=== PATIENT | male | born 1990 | race Caucasian/White ===

== ENCOUNTER 2025-03-26 10:57 | Emergency (ER) | payer OTHER ==
[2025-03-26] MEDS ORDERED: diphenhydrAMINE 25 MG CAP ONE (11:13)
== END 2025-03-26 13:00 | disposition home or self-care (01) ==
LOC: ERS 10:57
DX: R07.89 Other chest pain (principal); R05.9 Cough, unspecified; T38.0X5A Adverse effect of glucocorticoids and synthetic analogues, initial encounter; J45.909 Unspecified asthma, uncomplicated; Z79.51 Long term (current) use of inhaled steroids
CPT/HCPCS: 99282